=== PATIENT | female | born 1985 | race Caucasian/White ===

== ENCOUNTER 2018-04-05 20:42 | Inpatient (IN) | payer OTHER ==
[~2018-04-05] VITALS: Ht 160 cm; Wt 46.6 kg
[2018-04-05 21:15] LABS: HEMATOCRIT 37.8 % (36.0-46.0); HEMOGLOBIN 13.2 G/DL (11.9-15.5); MCH 31.4 PG (29.0-34.0); MCHC 34.9 G/DL (30.0-36.0); PLATELET COUNT 385 K/uL (156-360); RBC DIS.WIDTH-CV 11.7 % (11.8-14.6); RBC DIS.WIDTH-SD 38.5 % (39-53)
[2018-04-05 21:20] LABS: CHLORIDE 105 mEq/L (99-109); POTASSIUM 3.7 mEq/L (3.7-5.4); SODIUM 140 mEq/L (136-147)
[2018-04-05 21:22] LABS: GLUCOSE 110 mg/dL (70-99)
[2018-04-05 21:25] LABS: SERUM ETHYL ALCOHOL < 10 mg/dL
[2018-04-05 21:26] LABS: CREATININE 0.8 mg/dL (0.6-1.3)
[2018-04-05 21:27] LABS: UREA NITROGEN (BUN) 10 mg/dL (9-23)
[2018-04-05 21:29] LABS: GFR ESTIMATE (CALCULATED) > 59 mL/min/
[2018-04-05 21:35] LABS: QUANTITATIVE HCG < 4.0 MIU/ML
[2018-04-05 22:14] LABS: ALBUMIN 4.6 g/dL (3.2-4.8)
[2018-04-05 22:16] LABS: TOTAL PROTEIN 7.7 g/dL (6.4-8.3)
[2018-04-05 22:18] LABS: TOTAL BILIRUBIN 0.8 mg/dL (0.0-1.0)
[2018-04-05 22:19] LABS: ALKALINE PHOSPHATASE 42 IU/L (3-129)
[2018-04-05 22:22] LABS: AST (GOT) 15 IU/L (2-34); SALICYLATE < 5.0 MG/DL (15-30)
[2018-04-05 22:23] LABS: ACETAMINOPHEN (TYLENOL) < 10 mcg/mL (10-30); ALT (GPT) 12 IU/L (3-49)
[2018-04-06 00:23] LABS: AMPHETAMINE NEGATIVE (500 ng/mL); BARBITURATES NEGATIVE (200 ng/mL); BENZODIAZEPINES NEGATIVE (150 ng/mL); BUPRENORPHINE NEGATIVE (10 ng/mL); COCAINE NEGATIVE (150 ng/mL); METHADONE NEGATIVE (200 ng/mL); METHAMPHETAMINE NEGATIVE (500 ng/mL); OPIATES (MORPHINE) NEGATIVE (100 ng/mL); OXYCODONE NEGATIVE (100 ng/mL); PHENCYCLIDINE NEGATIVE (25 ng/mL); PROPOXYPHENE NEGATIVE (300 ng/mL); THC CANNABINOIDS NEGATIVE (50 ng/mL); TRICYCLIC ANTIDEPRESSANTS NEGATIVE (300 ng/mL)
[2018-04-06 16:42] VITALS: BP 98/59
[2018-04-06] MEDS ORDERED: AMBIEN5 MG PO (17:18)
[2018-04-07 08:12] VITALS: BP 99/48
[2018-04-07 16:07] VITALS: BP 100/49
[2018-04-08 07:59] VITALS: BP 102/52
== END 2018-04-08 10:40 | disposition home or self-care (01) | DRG 885 ==
LOC: EME 20:42 → 1WEST 04-06 13:01 → EDOF 04-06 13:01 → ENRESERV 04-06 15:04 → 1WEST 04-06 16:06
PROVIDERS: Emergency Medicine
DX: F32.1 Major depressive disorder, single episode, moderate (principal); F43.21 Adjustment disorder with depressed mood; F41.1 Generalized anxiety disorder; F43.10 Post-traumatic stress disorder, unspecified; Z88.0 Allergy status to penicillin
CPT/HCPCS: 80048; 80053; 84702; 85027; 90839; 93005; 99281; 99284; G0480; Q0177